=== PATIENT | female | born 1955 | race Caucasian/White ===

== ENCOUNTER 2016-09-20 22:07 | Emergency (ER) | payer MEDICARE, MEDICAID ==
[2016-09-20 22:29] VITALS: TEMP 98.1; BMI 44.9
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
[2016-09-20 23:25] LABS: BLOOD UREA NITROGEN 14 MG/DL (7-17); CALC CORRECTED 8.7 MG/DL (8.4-10.2); CALCIUM 8.6 MG/DL (8.4-10.2); CALCULATED OSMOLALITY 257 MOs/Kg (270-290); CHLORIDE 99 mEq/L (98-107); GLUCOSE 100 mg/dL (70-99); SODIUM LEVEL 133 mEq/L (137-146); TOTAL PROTEIN 7.6 G/DL (6.3-8.2)
--- NOTE | 2016-09-20 23:39 | DIRPT ---
CLINICAL DATA: Constipation. Nausea, vomiting and weakness. EXAM: DG ABDOMEN ACUTE W/ 1V CHEST COMPARISON: None. FINDINGS: Low lung volumes with mild cardiomegaly. Patchy bibasilar opacities, suboptimally evaluated secondary to habitus and portable technique No evidence of free air. Air-fluid level noted in the stomach. Air and moderate stool throughout prominent: In a nonobstructive pattern. Bright shadows project over the upper abdomen. Question mall distended urinary bladder in the pelvis. IMPRESSION: 1. No bowel obstruction. Moderate stool and air throughout the colon. No free air. 2. Patchy bibasilar opacities in the lung bases, likely atelectasis, however suboptimally evaluated secondary to technique. Electronically Signed By: Toya Sawyer M.D. On: 09/20/2016 23:36
[2016-09-21 00:37] LABS: SEG NEUTROPHIL 59 % (45-76)
[2016-09-21 01:59] VITALS: BP 128/76; PULSE 84
== END 2016-09-21 01:50 ==
LOC: ED 22:07
DX: K59.00 Constipation, unspecified (principal)
CPT/HCPCS: 36415; 74022; 80053; 85007; 85027; 99284